=== PATIENT | female | born 1985 | race Two or more races ===

== ENCOUNTER 2024-01-12 06:52 | Emergency (ER) | payer MEDICAID, OTHER ==
[~2024-01-12] VITALS: Ht 162.6 cm; Wt 110.0 kg
[2024-01-12 08:40] LABS: Basophils # (auto) 0 10 ^3/uL (0-0.2); Eosinophils # (auto) 0.1 10 ^3/uL (0-0.8); Eosinophils % (auto) 0.7 % (0.0-7.0); Hemoglobin 14.8 g/dL (12.2-16.2); Monocytes # (auto) 0.4 10 ^3/uL (0-1.3); Neutrophils # (auto) 9.9 10 ^3/uL (1.6-8.6)
[2024-01-12 08:42] LABS: Basophils % (auto) 0.2 % (0.0-2.0); Hematocrit 44.8 % (36.0-46.0); Lymphocytes # (auto) 1.4 10 ^3/uL (0.4-5.4); Lymphocytes % (auto) 12.3 % (10.0-50.0); Mean Corpuscular Hemoglobin 25.3 pg (28.0-32.0); Mean Corpuscular Volume 76.7 fL (80.0-100.0); Monocytes % (auto) 3.6 % (0.0-12.0); Neutrophils % (auto) 83.2 % (37.0-80.0); Platelet Count (auto) 338 10^3/uL (140-450); Red Blood Cells 5.85 10^6/uL (4.0-5.20); White Blood Cell 11.8 10^3/uL (4.4-10.8)
--- NOTE | 2024-01-12 08:48 | ED.PDOC ---
GI ASSESSMENT HPI Comments 38 year old female presents to the ED with chief complaint of N/V/D. Patient reports that she has been experiencing chronic nausea, vomiting, diarrhea, chills, and epigastric/RUQ abdominal pain for the past 3 years, worsening over the past year. Patient relays that she is presenting to the ED today due to the nausea and vomiting keeping her up all night last night. Patient states she has not visited a doctor regarding this concern and attributed her symptoms being possibly due to stress. Patient notes she has always felt very dehydrated due to not being able to keep most food or drink down. Patient reports history of HTN, but has not been on medication for a long time to control it. Patient denies any chest pain, SOB, fever, dizziness, dysuria, hematemesis, or melena. Chief Complaint: Abdominal Pain Time Seen by MD: 08:42 Reviewed Notes: Nurses Notes, Medications, Allergies Allergies: Coded Allergies: NO KNOWN ALLERGIES (Unverified , 01/12/24) Information Source: Patient Mode of Arrival: Ambulatory Timing: Other (x3 years) Duration: Since onset Prehospital treatment: None Quality: Aching Vomitus: Watery Stool: Watery Severity: Moderate Recent: None Recent Hx of: None Pain Location: Epigastric, RUQ Modifying Factors: Nothing Associated sign and symptoms: Nausea, Vomiting, Diarrhea, Abdominal Pain Past Medical History PAST MEDICAL HISTORY: HTN Surgical History: Denies all surgeries 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 Family History Family History: Reviewed,noncontributory to illness Social History Smoker: Non-Smoker Alcohol: Denies ETOH Use Drugs: Denies Drug Use Lives In: Home Constitutional: reports: chills; denies: diaphoresis, fatigue, fever, malaise, sweats, weakness, others EENTM: denies: blurred vision, double vision, ear bleeding, ear discharge, ear drainage, ear pain, ear ringing, eye pain, eye redness, hearing loss, mouth pain, mouth swelling, nasal discharge, nose bleeding, nose congestion, nose pain, photophobia, tearing, throat pain, throat swelling, voice changes, others Respiratory: denies: cough, hemoptysis, orthopnea, SOB at rest, shortness of breath, SOB with excertion, stridor, wheezing, others Cardiovascular: denies: chest pain, dizzy spells, diaphoresis, Dyspnea on exertion, edema, irregular heart beat, left arm pain, lightheadedness, palpitations, PND, syncope, others Gastrointestinal: reports: abdominal pain, diarrhea, nausea, vomiting; denies: abdomen distended, blood streaked bowels, constipated, dysphagia, difficulty swallowing, hematemesis, melena, poor appetite, poor fluid intake, rectal bleeding, rectal pain, others Genitourinary: denies: abnormal vagina bleeding, burning, dyspareunia, dysuria, flank pain, frequency, hematuria, incontinence, pain, , vagina discharge, urgency, others Neurological: denies: dizziness, fainting, headache, left sided numbness, left sided weakness, numbness, paresthesia, pre-existing deficit, right sided numbness, right sided weakness, seizure, speech problems, tingling, tremors, weakness, others Musculoskeletal: denies: back pain, gout, joint pain, joint swelling, muscle pain, muscle stiffness, neck pain, others Integumetry: denies: bruises, change in color, change in hair/nails, dryness, laceration, lesions, lumps, rash, wounds, others Allergic/Immunocompromised: denies: Difficulty Healing, Frequent Infections, Hives, Itching, others Hematologic/Lymphatic: denies: anemia, blood clots, easy bleeding, easy bruising, swollen glands, others Endocrine: reports: excessive thirst; denies: excessive hunger, excessive sweating, excessive urination, flushing, intolerance to cold, intolerance to heat, unexplained weight gain, unexplained weight loss, others Psychiatric: denies: anxiety, bipolar disorder, depression, hopeless, panic disorder, schizophrenia, sleepless, suicidal, others All Other Systems: Reviewed and Negative Physical Exam General Appearance: No Apparent Distress, Normal HEENT: Normal ENT Inspection, PERRL/EOMI Neck: Full Range of Motion, Non-Tender, Normal, Normal Inspection Respiratory: Chest Non-Tender, Lungs Clear, No Accessory Muscle Use, No Respiratory Distress, Normal Breath Sounds Cardiovascular: No Edema, No JVD, No Murmur, No Gallop, Normal Peripheral Pulses, Regular Rate/Rhythm Breast Exam: Deferred Gastrointestinal: No Organomegaly, No Pulsatile Mass, Normal Bowel Sounds, Soft, Tenderness (Mild epigastric and RUQ tenderness) Genitalia: Deferred Pelvic: Deferred Rectal: Deferred Extremities: No calf tenderness, Normal capillary refill, Normal inspection, Normal range of motion, Non-tender, No pedal edema Musculoskeletal : Apperance: Normal Neurologic: Alert, 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 Was a procedure done?: No GI differential Dx Differential Diagnosis: Cholecystitis, Gastritis/PUD, Gastroenteritis, PID, UTI, Dehydration, Diabetes/ DKA, Electrolyte Imbalance, Food Poisoning, , Hypovolemia X-Ray, Labs, Meds, VS Vital Signs Date Time Temp Pulse Resp B/P (MAP) Pulse Ox O2 Delivery O2 Flow Rate FiO2 01/12/24 10:31 101 18 161/100 01/12/24 09:48 104 16 174/112 01/12/24 09:32 104 17 95 Room Air 01/12/24 09:32 98.7 104 18 174/112 (132) 95 98.7 01/12/24 06:52 98.7 102 18 200/98 (132) 98 Lab Test 01/12/24 08:07 Range/Units White Blood Count 11.8 H 4.4-10.8 10^3/uL Red Blood Count 5.85 H 4.0-5.20 10^6/uL Hemoglobin 14.8 12.2-16.2 g/dL Hematocrit 44.8 36.0-46.0 % Mean Corpuscular Volume 76.7 L 80.0-100.0 fL Mean Corpuscular Hemoglobin 25.3 L 28.0-32.0 pg Mean Corpuscular Hemoglobin Concent 33.0 32.0-36.0 g/dL Red Cell Distribution Width 16.0 H 11.8-14.3 % Platelet Count 338 140-450 10^3/uL Mean Platelet Volume 7.9 6.9-10.8 fL Neutrophils (%) (Auto) 83.2 H 37.0-80.0 % Lymphocytes (%) (Auto) 12.3 10.0-50.0 % Monocytes (%) (Auto) 3.6 0.0-12.0 % Eosinophils (%) (Auto) 0.7 0.0-7.0 % Basophils (%) (Auto) 0.2 0.0-2.0 % Neutrophils # (Auto) 9.9 H 1.6-8.6 10 ^3/uL Lymphocytes # (Auto) 1.4 0.4-5.4 10 ^3/uL Monocytes # (Auto) 0.4 0-1.3 10 ^3/uL Eosinophils # (Auto) 0.1 0-0.8 10 ^3/uL Basophils # (Auto) 0 0-0.2 10 ^3/uL Nucleated Red Blood Cells 0.0 % Sodium Level 138 136-145 mmol/L Potassium Level 3.6 3.5-5.1 mmol/L Chloride Level 106 98-107 mmol/L Carbon Dioxide Level 22 20-31 mmol/L Anion Gap 10 5-15 Blood Urea Nitrogen 16 9-23 mg/dL Creatinine 0.74 0.550-1.02 mg/dL Glomerular Filtration Rate Calc 105 >90 mL/min BUN/Creatinine Ratio 21.6 H 10.0-20.0 Serum Glucose 162 H 74-106 mg/dL Calcium Level 9.6 8.7-10.4 mg/dL Total Bilirubin 0.5 0.2-1.0 mg/dL Aspartate Amino Transferase (AST) 23 13-40 U/L Alanine Aminotransferase (ALT) 30 7-40 U/L Alkaline Phosphatase 67 46-116 U/L Total Protein 7.7 5.7-8.2 g/dL Albumin 4.6 3.2-4.8 g/dL Lipase 27 12-53 U/L Beta-Hydroxybutyric Acid 0.167 < 0.4 mmol/L Thyroid Stimulating Hormone (TSH) 1.02 0.55-4.78 uIU/mL Beta HCG, Quantitative 0.5 L 1.5-4.2 mIU/mL Current Medications Medications (Trade) Dose Ordered Sig/Estee Route Start Time Stop Time Status Last Admin Ondansetron HCl (Zofran) 4 mg ONCE ONCE IV 01/12/24 09:00 01/12/24 09:01 DC 01/12/24 09:46 Sodium Chloride 1,000 ml @ 1,000 mls/hr Q1H ONCE IVB 01/12/24 09:00 01/12/24 09:59 DC 01/12/24 09:08 Morphine Sulfate 4 mg ONCE ONCE IV 01/12/24 09:45 01/12/24 09:46 DC 01/12/24 09:48 [facility] [id number] [address] [address] Ph: [phone] DIAGNOSTIC IMAGING Diagnostic Imaging Report : [id number] Signed PATIENT: NORMA SAENZT: [id number] UNIT: [id number] : 1985 LOC: ER ROOM / BED: / AGE / SEX: 38 / F ADM STATUS: REG ER SERVICE 7 ORDERING PHYSICIAN: DAJUAN WYLIE MD PROCEDURE(s): GBUS - GALLBLADDER REASON: ro charli ORDER NUMBER(s): [id number], ACCESSION NUMBER(s): [id number] Procedure: US GALLBLADDER 01/12/2024 09:00 AM Indication: ro charli. Comparison: None Technique: Grayscale and color images of the right upper quadrant were obtained. FINDINGS: ASCITES: None. LIVER: Liver measures 15.7 cm craniocaudal. Liver parenchyma is diffusely echogenic. No focal lesion is identified. No intrahepatic ductal dilatation. Normal directional flow is seen in the portal vein. GALLBLADDER: Multiple gallstones are seen. There is gallbladder sludge. No gallbladder wall edema or pericholecystic fluid. Sonographic Drew's sign is negative. COMMON BILE DUCT: Not visualized. PANCREAS: Visualized portions are unremarkable. RIGHT KIDNEY: Normal in size without hydronephrosis. No focal lesions identified. AORTA, IVC: Visualized portions are unremarkable. OTHER: None. IMPRESSION: 1. Cholelithiasis and gallbladder sludge without evidence of acute cholecystitis. 2. Hepatic steatosis. ATED BY: MALA SUTHERLAND MD DICTATED DATE/TIME: 01/12/24935 SIGNED BY: MALA SUTHERLAND MD SIGNED DATE/TIME: 01/12/24935 CC: 38-year-old female presents here with right upper quadrant pain and vomiting that she had been had for 3 years worse for the last 1 year. At this time blood work has been done which demonstrates no significant pathology. There was no evidence of diabetes. No electrolyte abnormality. She does have evidence of cholelithiasis and gallbladder sludge on her ultrasound of the gallbladder. However there was no evidence of cholecystitis. I have given her Zofran and IV fluids here in the ER. Clinically on re-evaluation she is feeling much better. I have advised her she needs to follow up with the PCP and obtain a outpatient surgical consult for removal of her gallbladder if this continues to give her significant problem. I have prescribed her Zofran also. Advised her to return if his symptoms worsen or persist. Patient agreeable to plan. Images Reviewed?: Images reviewed and evaluated by me Time of 1ST Reevaluation: 09:42 Reevaluation 1ST: Improved Time of 2ND Reevaluation: 10:36 Reevaluation 2ND: Improved Patient Education/Counseling: Diagnosis, Treatment Family Education/Counseling: No Family Present Departure 1 Departure Time of Disposition: 10:35 Impression: Primary Impression: Cholelithiases Qualified Codes: K80.20 - Calculus of gallbladder without cholecystitis without obstruction Disposition: HOME / SELF CARE / HOMELESS Condition: Stable Additional Instructions: You have stones in your gallbladder today. It is not infected. However you need to follow up with the primary care physician and ask for an outpatient surgical consult for removal of your gallstones. In the meantime it is important you stay away from fatty foods as that will make her vomiting and pain worse. If your pain is uncontrolled please return back to the emergency room. Follow up your primary care physician in 2-3 days. e-Prescriptions Ibuprofen Micronized (MOTRIN TABLET) 600 Mg Tb 600 MG PO TID PRN, #30 TAB *Black box warning-NSAIDS can increase risk of RI & hypertension, GI irritation, ulceration, bleed, perferation. Do not use post cardiac surgery. Use short duration/lowest effective dose. Prov: DAJUAN WYLIE MD 01/12/24 Ondansetron Odt 4MG Tab (ZOFRAN PO) 4 Mg Tb 4 MG PO Q6HPRN PRN, #14 TAB ODT TAB-DISSOLVE IN MOUTH, THEN SWALLOW Prov: DAJUAN WYLIE MD 01/12/24 Discharged With: Self Comments [address] [address] Ph: [phone] DIAGNOSTIC IMAGING Diagnostic Imaging Report : [id number] Signed PATIENT: JENELLE SAENZACCT: [id number] UNIT: [id number] : 1985 LOC: ER ROOM / BED: / AGE / SEX: 38 / F ADM STATUS: REG ER SERVICE 7 ORDERING PHYSICIAN: DAJUAN WYLIE MD PROCEDURE(s): GBUS - GALLBLADDER REASON: ro charli ORDER NUMBER(s): [id number], ACCESSION NUMBER(s): [id number] Procedure: US GALLBLADDER 01/12/2024 09:00 AM Indication: ro charli. Comparison: None Technique: Grayscale and color images of the right upper quadrant were obtained. FINDINGS: ASCITES: None. LIVER: Liver measures 15.7 cm craniocaudal. Liver parenchyma is diffusely echogenic. No focal lesion is identified. No intrahepatic ductal dilatation. Normal directional flow is seen in the portal vein. GALLBLADDER: Multiple gallstones are seen. There is gallbladder sludge. No gallbladder wall edema or pericholecystic fluid. Sonographic Drew's sign is negative. COMMON BILE DUCT: Not visualized. PANCREAS: Visualized portions are unremarkable. RIGHT KIDNEY: Normal in size without hydronephrosis. No focal lesions identified. AORTA, IVC: Visualized portions are unremarkable. OTHER: None. IMPRESSION: 1. Cholelithiasis and gallbladder sludge without evidence of acute cholecystitis. 2. Hepatic steatosis. ATED BY: MALA SUTHERLAND MD DICTATED DATE/TIME: 01/12/24935 SIGNED BY: MALA SUTHERLAND MD SIGNED DATE/TIME: 01/12/24935 CC: Critical Care Note Critical Care Time?: No Stability Stability form required: No Heart Score Heart Score: Heart Score Response (Comments) Value History N/A 0 EKG N/A 0 Age N/A 0 Risk Factors N/A 0 Troponin N/A 0 Total 0 I personally scribed for DAJUAN WYLIE MD ([email or web address]) on 01/12/24 at 08:48. Electronically submitted by Jose Manuel Garcia ([email or web address]). I personally scribed for DAJUAN WYLIE MD ([email or web address]) on 01/12/24 at 10:48. Electronically submitted by Jose Manuel Garcia ([email or web address]). DAJUAN WYLIE MD Jan 12, 2024 08:48
[2024-01-12 08:57] LABS: Alanine Aminotransferase 30 U/L (7-40); Albumin 4.6 g/dL (3.2-4.8); Alkaline Phosphatase 67 U/L (46-116); Anion Gap 10 (5-15); Aspartate Aminotransferase 23 U/L (13-40); BUN/Creatinine Ratio 21.6 (10.0-20.0); Bilirubin, Total 0.5 mg/dL (0.2-1.0); Blood Urea Nitrogen 16 mg/dL (9-23); Calcium 9.6 mg/dL (8.7-10.4); Carbon Dioxide 22 mmol/L (20-31); Chloride 106 mmol/L (98-107); Glucose 162 mg/dL (74-106); Lipase 27 U/L (12-53); Potassium 3.6 mmol/L (3.5-5.1); Sodium 138 mmol/L (136-145); Total Protein 7.7 g/dL (5.7-8.2)
[2024-01-12] MEDS: SODIUM CHLORIDE 0.9% 1,000 ML IVB ONE (09:08)
[2024-01-12 09:32] VITALS: TEMP 98.7; O2SAT 95
--- NOTE | 2024-01-12 09:39 | DVH ---
Procedure: US GALLBLADDER 01/12/2024 09:00 AM Indication: ro charli. Comparison: None Technique: Grayscale and color images of the right upper quadrant were obtained. FINDINGS: ASCITES: None. LIVER: Liver measures 15.7 cm craniocaudal. Liver parenchyma is diffusely echogenic. No focal lesion is identified. No intrahepatic ductal dilatation. Normal directional flow is seen in the portal vein . GALLBLADDER: Multiple gallstones are seen. There is gallbladder sludge. No gallbladder wall edema or pericholecystic fluid. Sonographic Drew's sign is negative. COMMON BILE DUCT: Not visualized. PANCREAS: Visualized portions are unremarkable. RIGHT KIDNEY: Normal in size without hydronephrosis. No focal lesions identified. AORTA, IVC: Visualized portions are unremarkable. OTHER: None. IMPRESSION: 1. Cholelithiasis and gallbladder sludge without evidence of acute cholecystitis. 2. Hepatic steatosis.
[2024-01-12] MEDS: ONDANSETRON HCL 4 MG/2 ML VIAL IV ONE (09:46)
[2024-01-12] MEDS: MORPHINE SULFATE 4 MG/ML SYR/VIAL IV ONE (09:48)
[2024-01-12 10:31] VITALS: BP 161/100; PULSE 101; RESP 18
[2024-01-12] MEDS ORDERED: ZOFR4T PO (11:36)
[2024-01-12] MEDS ORDERED: IBU600T PO (11:36)
== END 2024-01-12 10:50 | disposition home or self-care (01) ==
LOC: ER 06:52 → EDBD 06:52 → ER 10:50
DX: K80.20 Calculus of gallbladder without cholecystitis without obstruction (principal); R10.2 Pelvic and perineal pain; I10 Essential (primary) hypertension
CPT/HCPCS: 36415; 76705; 80053; 82010; 83690; 84443; 84702; 85025; 96361; 96374; 96375; 99285; J2270; J2405; J7030